=== PATIENT | female | born 1940 | race Two or more races ===

== ENCOUNTER 2019-09-23 13:52 | Emergency (ER) | payer MEDICARE ==
[~2019-09-23] VITALS: Ht 167.6 cm; Wt 45.4 kg
[~2019-09-23 13:52] MED LIST: ALPR0.5T8 PO; CARB-93 PO; CARB1TAB40 PO; LEVO50TA8 PO; MIRT30TA7 PO; OMEP20CA15 PO
--- NOTE | 2019-09-23 14:00 | NUR ---
[facility], RUE X-RAY REVEALED FRACTURE, C/O R FA PAIN X 2 DAYS, FELL OUT OF BED 5 DAYS AGO PER PT. CALLED FACILITY ASKED FOR BASELINE MENTATION, PER FACILITY RN, PATIENT IS A/OX1, VERBALLY RESPONSIVE ONLY AT TIMES.
[2019-09-23] MEDS ORDERED: ACET-868 PO ×2 (14:09)
[2019-09-23] MEDS ORDERED: CLON0.5T PO (14:09)
[2019-09-23] MEDS ORDERED: CRAN425C6 PO (14:09)
[2019-09-23] MEDS ORDERED: DOCU-141 PO (14:09)
[2019-09-23] MEDS ORDERED: MULT-447 PO (14:09)
[2019-09-23] MEDS ORDERED: MAGN400O6 PO (14:09)
[2019-09-23 16:09] LABS: BASOPHILS % (AUTO) 0.6 % (0.0-2.0); EOSINOPHILS % (AUTO) 1.4 % (0.0-6.0); HEMATOCRIT 34 % (33-45); HEMOGLOBIN 11.1 g/dL (11.5-14.8); LYMPHOCYTES # (AUTO) 1.5 /CMM (0.8-4.8); LYMPHOCYTES % (AUTO) 22.7 % (20.0-44.0); MEAN CORPUSCULAR HGB CONC 32 g/dl (31.0-36.0); MEAN CORPUSCULAR VOLUME 93 fL (82-100); MONOCYTES # (AUTO) 0.5 /CMM (0.1-1.30); MONOCYTES % (AUTO) 7.8 % (2.0-12.0); NEUTROPHILS # (AUTO) 4.3 /CMM (1.8-8.9); NEUTROPHILS % (AUTO) 67.5 % (43.0-81.0); PLATELET COUNT (AUTO) 398 /CMM (150-450); RED BLOOD CELL COUNT(AUTO) 3.69 MIL/uL (4.0-5.2); WHITE BLOOD COUNT (AUTO) 6.4 K/uL (4.3-11.0)
[2019-09-23 16:24] LABS: CALCIUM, SERUM 8.3 mg/dL (8.5-10.1); CARBON DIOXIDE 27 mmol/L (21-32); CHLORIDE 106 mmol/L (98-107); CREATININE 0.6 mg/dL (0.6-1.3); GLUCOSE 130 mg/dL (74-106); POTASSIUM 4.1 mmol/L (3.5-5.1); SODIUM SERUM 141 mmol/L (136-145); UREA NITROGEN, BLOOD 9 mg/dL (7-18)
[2019-09-23 16:30] LABS: ALANINE AMINOTRANSFERASE 9 U/L (12-78); ALBUMIN 3.1 g/dL (3.4-5.0); ALKALINE PHOSPHATASE 100 U/L (46-116); ASPARTATE AMINOTRANSFERASE 22 U/L (15-37); BILIRUBIN,TOTAL 0.2 mg/dL (0.2-1.0); TOTAL PROTEIN, SERUM 6.6 g/dL (6.4-8.2)
--- NOTE | 2019-09-23 16:33 | NUR ---
PATIENT CAME BACK FROM RADIOLOGY.
--- NOTE | 2019-09-23 18:12 | NUR ---
REPORT GIVEN TO BAIRON AT [facility].
--- NOTE | 2019-09-23 18:22 | NUR ---
CALLED CONNIE SLAUGHTER [facility] [phone]
--- NOTE | 2019-09-23 19:05 | NUR ---
[facility] CALLED FOR NEW ETA 2015.
--- NOTE | 2019-09-23 19:22 | NUR ---
ENDORSED TO DREW SOLIS FOR [facility].
--- NOTE | 2019-09-23 19:32 | NUR ---
PT IN BED. NOT IN RESP DISTRESS. AWAITING FOR TRANSPORT
--- NOTE | 2019-09-23 20:54 | NUR ---
[facility] AT BEDSIDE FOR TRANSPORT BACK TO [facility]. REPORT GIVEN TO [facility] STAFF. PT IS STABLE, NO DISTRESS NOTED
[2019-09-23 21:42] VITALS: BP 150/76
== END 2019-09-23 21:43 | disposition home or self-care (01) ==
LOC: ER 13:53
DX: S52.591A Other fractures of lower end of right radius, initial encounter for closed fracture (principal); S52.691A Other fracture of lower end of right ulna, initial encounter for closed fracture; R41.82 Altered mental status, unspecified; F03.90 Unspecified dementia, unspecified severity, without behavioral disturbance, psychotic disturbance, mood disturbance, and anxiety; Z79.899 Other long term (current) drug therapy; X58.XXXA Exposure to other specified factors, initial encounter; Y93.89 Activity, other specified; Y92.89 Other specified places as the place of occurrence of the external cause; Y99.8 Other external cause status
CPT/HCPCS: 36415; 70450-TC; 71045-TC; 72125-TC; 73080-TC; 73090-TC; 80048-TC; 80076-TC; 82962-TC; 84484-TC; 85025-TC

== ENCOUNTER 2020-10-08 09:23 | Emergency (ER) | payer MEDICARE ==
[~2020-10-08] VITALS: Ht 149.9 cm; Wt 38.1 kg
[~2020-10-08 09:23] MED LIST changes: +ACET-868 PO; -ALPR0.5T8 PO; -CARB1TAB40 PO; +CLON0.5T PO; +CRAN425C6 PO; +DOCU-141 PO; +MAGN400O6 PO; +MULT-447 PO; -OMEP20CA15 PO
--- NOTE | 2020-10-08 09:43 | NUR ---
[id number] FOR NOTED CONGESTION AND DROOLING. PATIENT OPENS EYES, ON ROOM AIR WITH SPO2 OF 90%, PLACED O2 AT 2LPM VIA NC. NO DISTRESS NOTED. COMFORTABLE IN BED.
[2020-10-08] MEDS ORDERED: AMIN30LI2 PO (10:51)
[2020-10-08] MEDS ORDERED: CHOL100062 PO (10:51)
[2020-10-08] MEDS ORDERED: CYCL30DR EACHEYE (10:51)
[2020-10-08] MEDS ORDERED: ZINC220C6 PO (10:51)
[2020-10-08] MEDS ORDERED: ASCO-352 PO (10:51)
[2020-10-08] MEDS ORDERED: QUERCETIN PO (10:51)
[2020-10-08] MEDS ORDERED: CARB1TAB21 PO (10:51)
[2020-10-08] MEDS ORDERED: POLY15DR40 EACHEYE (10:51)
--- NOTE | 2020-10-08 10:54 | NUR ---
COVID SWAB SENT TO LAB.
--- NOTE | 2020-10-08 11:26 | NUR ---
SUPPLEMENTAL O2 REMOVED AND REPOSITIONED, HOB KEPT ELEVATED. PATIENT MONITORED FOR 15 MINS, PULSE OX IS 99% ON ROOM AIR. NO RESPIRATORY DISTRESS NOTED. DR. GOMEZ MADE AWARE.
[2020-10-08] MEDS ORDERED: AZIT250T13 PO (11:42)
[2020-10-08] MEDS ORDERED: AMOX-430 PO (11:42)
--- NOTE | 2020-10-08 11:42 | NUR ---
CALLED [facility] FOR TRANSPORT TO [facility]. ETA 60 MINUTES.
--- NOTE | 2020-10-08 11:44 | NUR ---
REPORT GIVEN TO JOSE SOLIS AT [facility].
--- NOTE | 2020-10-08 12:59 | NUR ---
PATIENT IN NO RESPIRATORY DISTRESS. ON ROOM AIR WITH SPO2 OF 99-100%. REPORT AND PAPERWORKS GIVEN TO [employer] ADVISOR. NO DISTRESS NOTED.
--- NOTE | 2020-10-08 12:59 | NUR ---
PATIENT DISCHARGED BACK TO SNF.
[2020-10-08 13:00] VITALS: BP 106/58
== END 2020-10-08 13:00 ==
LOC: ER 09:33
DX: J69.0 Pneumonitis due to inhalation of food and vomit (principal); Z20.822 Contact with and (suspected) exposure to COVID-19; K11.7 Disturbances of salivary secretion; M62.50 Muscle wasting and atrophy, not elsewhere classified, unspecified site; I11.0 Hypertensive heart disease with heart failure; I50.32 Chronic diastolic (congestive) heart failure; G20 Parkinson's disease; F02.80 Dementia in other diseases classified elsewhere, unspecified severity, without behavioral disturbance, psychotic disturbance, mood disturbance, and anxiety; E78.5 Hyperlipidemia, unspecified; E03.9 Hypothyroidism, unspecified; Z79.890 Hormone replacement therapy; Z66 Do not resuscitate
CPT/HCPCS: 71045-TC; C9803